=== PATIENT | male | born 1955 | race Caucasian/White ===

== ENCOUNTER 2016-06-16 07:31 | Day surgery (SDC) | payer BC ==
[2016-06-14 09:16] LABS: BASOPHILS 0.5 %; BASOPHILS ABSOLUTE 0.03 10/3/uL (0.0-0.16); EOSINOPHILS 1.5 %; EOSINOPHILS ABSOLUTE 0.09 10/3/uL (0.0-0.53); HEMATOCRIT 41.4 % (40.0-51.0); HEMOGLOBIN 14.2 g/dL (13.6-17.8); IMMATURE GRANULOCYTES 0.2 %; IMMATURE GRANULOCYTES ABSOLUTE 0.01 10/3/uL (0.0-0.11); LYMPHOCYTES 22.9 %; LYMPHOCYTES ABSOLUTE 1.38 10/3/uL (0.67-4.30); MEAN CORPUS HGB CONC 34.3 g/dL (32.0-36.0); MEAN CORPUSCULAR HEMOGLOB 30.1 pg (26.0-34.0); MEAN CORPUSCULAR VOLUME 87.9 fL (80-100); MEAN PLATELET VOLUME 10.5 fL (9.2-13.0); MONOCYTES ABSOLUTE 0.48 10/3/uL (0.21-1.20); NEUTROPHILS 66.9 %; NEUTROPHILS ABSOLUTE 4.03 10/3/uL (2.02-8.40); PLATELET COUNT 187 10/3/uL (150-400); RBC DISTRIBUTION WIDTH 12.7 % (12.0-16.0); RED CELL COUNT 4.71 10/6/uL (4.7-6.1)
[2016-06-14 09:17] LABS: MANUAL DIFF NO %
[2016-06-14 09:33] LABS: BUN (BLOOD UREA NITROGEN) 13 MG/DL (6-23); CALCIUM, SERUM 8.5 MG/DL (8.5-10.4); CHLORIDE, SERUM 108 MMOL/L (96-112); CO2 (CARBON DIOXIDE) 30 MMOL/L (24-34); CREATININE 0.91 MG/DL (0.70-1.30); GFR AFRICAN AMERICAN 106 ML/MIN (>=60); GFR NON AFRICAN AMERICAN 91 ML/MIN (>=60); GLUCOSE, SERUM 98 MG/DL (60-99); POTASSIUM, SERUM 4.3 MMOL/L (3.5-5.3); SODIUM, SERUM 145 MMOL/L (135-148)
[2016-06-14 09:38] LABS: PFA (COL/EPI) 148 SEC (72-180)
[2016-06-14 09:44] LABS: ASCORBIC ACID (UR NOT ORDER) NEG (NEG); BILIRUBIN, URINE NEGATIVE (NEG); KETONE, URINE NEGATIVE (NEG); LEUKOCYTE ESTERASE(NOT OR NEG (NEG); WBC (NOT ORDERED) (RFLEX) 1 (0-5)
--- NOTE | ~2016-06-16 | OP ---
Record Of [id number] [place]. [address] NAME: TIKI DE LOS SANTOS : 57 STATUS : REG [facility] PAT#: [id number] AGE: 61 ADM/REG DATE : 06/16/16 MR#: [id number] REPORT SERV DATE: 06/16/16 DICTATED BY: KAI SORENSEN DATE: 06/16/16 REPORT STATUS : Draft TRANSCRIBED BY: MODL DATE: 06/16/16 DATE OF PROCEDURE: 06/16/2016 PREOPERATIVE DIAGNOSIS: Elevated PSA of 11.2. POSTOPERATIVE DIAGNOSIS: Elevated PSA of 11.2. PROCEDURE: Transrectal ultrasound with saturation biopsy of the prostate gland. SURGEON: Kai Sorensen M.D. ANESTHESIA: MAC. SPECIMENS: 1. Left apex 3 cores. 2. Left mid 6 cores. 3. Left base 6 cores. 4. Right apex 3 cores. 5. Right mid 6 cores. 6. Right base 6 cores. COMPLICATIONS: None. DISPOSITION: To Phase 2 in good condition. ESTIMATED BLOOD LOSS: Less than 5 mL. PROSTATIC VOLUME: 83.28 mL. HISTORY: A 61-year-old gentleman, whose PSA took a jump to 11.2 in the past year. This is his third prostate biopsy, so he presents today for saturation biopsies in the operating room. PROCEDURE IN DETAIL: After consent was obtained, the patient was taken to the operating room and placed in the left lateral decubitus position in the stretcher. MAC anesthetic was induced. The above biopsies were then taken. After ultrasound volume was obtained by the Department of Radiology. Pressure was held on the biopsy site for 3 minutes by the clock using lidocaine with epinephrine soaked gauze. The patient tolerated it well. He was awakened and taken to Phase 2 in good condition. PLAN: Plan will be to see him back in two weeks for his pathology results. All of his postoperative prescriptions were given to him at his office visit. /MODL Record Of [address] [place]. [address] NAME: TIKI DE LOS SANTOS : 57 STATUS : REG [facility] PAT#: [id number] AGE: 61 ADM/REG DATE : 06/16/16 MR#: [id number] REPORT SERV DATE: 06/16/16 DICTATED BY: KAI SORENSEN DATE: 06/16/16 REPORT STATUS : Draft TRANSCRIBED BY: JACEK DATE: 06/16/16 Kai Sorensen M.D. / [id number] CC: Shereen Lima M.D.
[~2016-06-16 07:31] MED LIST: CENTRUM PO; CIP5 PO; FLOMAX4 PO; MEVACOR40 MG PO; OMNICEF PO; XARELTO20 MG PO; lovastatin PO
[2016-08-10] MEDS ORDERED: [UNRECOGNIZED DRUG - OTHER] PO (10:35)
[2016-08-10] MEDS ORDERED: METAMUCIL CAN7 OZ PO (10:36)
[2016-08-10] MEDS ORDERED: T PO (10:37)
== END 2016-06-16 15:47 | disposition home or self-care (01) ==
LOC: SDC 07:31
PROVIDERS: Urology
PROC: 0VB03ZX Excision of Prostate, Percutaneous Approach, Diagnostic (ICD-10-PCS; principal; 2016-06-16 08:45)
DX: C61 Malignant neoplasm of prostate (principal); Z79.899 Other long term (current) drug therapy; Z98.890 Other specified postprocedural states; Z98.52 Vasectomy status
CPT/HCPCS: 76872; 76942; 80048; 81001; 85025; 85576; 88305; 93005; J2250; J2405

== ENCOUNTER 2016-08-17 05:42 | Observation (INO) | payer BC ==
[2016-08-10 11:55] LABS: BASOPHILS 0.5 %; BASOPHILS ABSOLUTE 0.03 10/3/uL (0.0-0.16); EOSINOPHILS 0.9 %; EOSINOPHILS ABSOLUTE 0.06 10/3/uL (0.0-0.53); HEMATOCRIT 41.6 % (40.0-51.0); HEMOGLOBIN 14.5 g/dL (13.6-17.8); IMMATURE GRANULOCYTES 0.2 %; IMMATURE GRANULOCYTES ABSOLUTE 0.01 10/3/uL (0.0-0.11); LYMPHOCYTES 15.9 %; LYMPHOCYTES ABSOLUTE 1.04 10/3/uL (0.67-4.30); MEAN CORPUS HGB CONC 34.9 g/dL (32.0-36.0); MEAN CORPUSCULAR HEMOGLOB 30.4 pg (26.0-34.0); MEAN CORPUSCULAR VOLUME 87.2 fL (80-100); MEAN PLATELET VOLUME 10.4 fL (9.2-13.0); MONOCYTES ABSOLUTE 0.46 10/3/uL (0.21-1.20); NEUTROPHILS 75.5 %; NEUTROPHILS ABSOLUTE 4.93 10/3/uL (2.02-8.40); PLATELET COUNT 194 10/3/uL (150-400); RBC DISTRIBUTION WIDTH 12.9 % (12.0-16.0); RED CELL COUNT 4.77 10/6/uL (4.7-6.1); WHITE BLOOD CELLS 6.5 10/3/uL (4.5-10.5)
[2016-08-10 11:56] LABS: MANUAL DIFF NO %
[2016-08-10 12:03] LABS: INTERNATIONAL NORMAL RATI 1.1 UNITS (-); PARTIAL THROMBO TIME 30.7 SEC (22.5-37.2); PROTIME (NOT ORD) 13.9 SEC (12.0-14.5)
[2016-08-10 12:04] LABS: ASCORBIC ACID (UR NOT ORDER) NEG (NEG); BILIRUBIN, URINE NEGATIVE (NEG); KETONE, URINE NEGATIVE (NEG); LEUKOCYTE ESTERASE(NOT OR TRACE (NEG); WBC (NOT ORDERED) (RFLEX) 7 (0-5)
[2016-08-10 12:10] LABS: BUN (BLOOD UREA NITROGEN) 15 MG/DL (6-23); CALCIUM, SERUM 8.9 MG/DL (8.5-10.4); CHLORIDE, SERUM 108 MMOL/L (96-112); CO2 (CARBON DIOXIDE) 30 MMOL/L (24-34); CREATININE 0.87 MG/DL (0.70-1.30); GFR AFRICAN AMERICAN 109 ML/MIN (>=60); GFR NON AFRICAN AMERICAN 94 ML/MIN (>=60); GLUCOSE, SERUM 107 MG/DL (60-99); POTASSIUM, SERUM 4.2 MMOL/L (3.5-5.3); SODIUM, SERUM 143 MMOL/L (135-148)
--- NOTE | ~2016-08-17 | OP ---
Record Of Operation [facility] [address] [place]. [address] NAME: TIKI DE LOS SANTOS : 57 STATUS : ADM Genia PAT#: [id number] AGE: 61 ADM/REG DATE : 08/17/16 MR#: [id number] REPORT SERV DATE: 08/17/16 DICTATED BY: BROCK GUADALUPE DATE: 08/17/16 REPORT STATUS : Draft TRANSCRIBED BY: MODL DATE: 08/17/16 DATE OF PROCEDURE: 08/17/2016 PREOPERATIVE DIAGNOSIS: Adenocarcinoma of the prostate, clinical stage T2b, Cloverdale score 3+4=7, maximum PSA 11.2. POSTOPERATIVE DIAGNOSIS: Adenocarcinoma of the prostate, clinical stage T2b, Cloverdale score 3+4=7, maximum PSA 11.2. OTHER DIAGNOSIS: Umbilical hernia. PROCEDURES: 1. Laparoscopic robot-assisted radical prostatectomy. 2. Laparoscopic robot-assisted bilateral pelvic node sampling. 3. Umbilical hernia repair. POOL COORDINATOR: Irasema Barney. ANESTHESIA: General. ESTIMATED BLOOD LOSS: 150 mL. FLUID REPLACEMENT: 3 L of crystalloid. DRAINS: A 15 mm Fan drain in prevesical space and an 18-Bahamian Guadalupe catheter per urethra with 12 mL of sterile water inflating in catheter balloon. INDICATION: A 61-year-old male with adenocarcinoma of the prostate as described above. He also has an umbilical hernia. TECHNIQUE: The patient was identified, brought to the operating room, administered general anesthetic agent by the Anesthesia Service, and intubated. He was positioned into the dorsal lithotomy position and appropriately padded and secured to the table. The abdomen was previously clipped. The entire abdomen, penis, groin, scrotum, and perineum were prepped and draped in usual sterile fashion. A 16-Bahamian Guadalupe catheter was passed in the bladder and left for drainage. All laparoscopic port sites were first infiltrated with 0.5% Marcaine plain. A 3 cm skin incision was made around the umbilicus on the right side. It was carried down to the fascia and the hernia sac of the umbilical hernia was identified. The hernia sac was opened sharply. Part of the hernia sac was excised at this point. A balloon trocar was placed into the peritoneal space and a pneumoperitoneum was created by insufflating carbon dioxide. The abdominal pressure was raised to 15 mmHg and held there through the entire case until otherwise specified. All other laparoscopic ports were placed under direct laparoscopic vision. The patient was placed in steep Trendelenburg and three robot arm ports and two virtual assistant for advertisers ports were placed under laparoscopic vision. Once the ports were in position, the da Eyal robot was brought to the table and mated to the ports. Record Of Operation [facility] [address] [address] NAME: TIKI DE LOS SANTOS : 57 STATUS : ADM Genia PAT#: [id number] AGE: 61 ADM/REG DATE : 08/17/16 MR#: [id number] REPORT SERV DATE: 08/17/16 DICTATED BY: BROCK GUADALUPE DATE: 08/17/16 REPORT STATUS : Draft TRANSCRIBED BY: JACEK DATE: 08/17/16 The abdominal pressure was raised to 15 mmHg and held there through the entire case until otherwise specified. I then took down some adhesions between the sigmoid colon and left pelvic sidewall. I opened the cul-de-sac and exposed the seminal structures. The left and right vasa deferentia were dissected out, clipped proximally, and transected distally. The seminal vesicles were then dissected out. The Denonvilliers fascia was opened sharply and the rectum was swept off the undersurface of the prostate with sharp and blunt dissection. The rectum was adherent to the prostate especially at the right apex. It was very careful to take down the rectum and leave some of the tissue attached to the prostate as this may be part of his cancer. Once I had the rectum taken down off the undersurface of the prostate, I opened the peritoneum just lateral to the median umbilical ligaments on each side and I swept the bladder off the anterior abdominal wall, symphysis pubis. I divided the median umbilical ligaments and the urachus near the umbilicus. The fat overlying the prostate gland was taken off with sharp dissection. I pierced the endopelvic fascia sharply at the prostatovesical junction and opened the endopelvic fascia all way out through the puboprostatic ligaments bilaterally. Attachments of the striated sphincter were taken off the apex of the prostate sharply. The dorsal venous complex was isolated and secured with laparoscopic SANDRO stapling device. I oversewed part of it with 3-0 Monocryl. I began to dissect the neurovascular bundles off the apex of the prostate. On the right side, it was stuck, so I sacrificed a part of the neurovascular bundle on the right side. On the left side, it mobilized off more cleanly. I then switched to 30-degree down lens and developed a plane between the bladder neck of the prostate. I preserved the bladder neck and came across it sharply and then I came across the posterior bladder neck. The Guadalupe catheter was elevated. I carried the dissection down to expose the seminal structures. The lateral attachments of the bladder to the prostate were taken off sharply. The posterior pedicles were secured with locking clips and divided sharply. I carried the dissection out to the apex. The last attachments of striated sphincter were taken off the apex of the prostate. The urethra was divided sharply and the posterior striated sphincter was divided. The specimen was inspected, appeared intact, and placed in a specimen retrieval bag and held for later retrieval. I took some frozen sections from the posterior apex as well as the right neurovascular bundle. No prostatic tissue was noted. The abdominal pressure is now lowered down to 7 mmHg and held there for the next 10 minutes. The pelvis was irrigated copiously. Fastidious hemostasis was achieved. I performed posterior reconstruction in two layers using 3-0 V-Loc. I then did a modified van Velthoven vesicourethral anastomosis with 3-0 V-Loc. When the anastomosis was completed, I inserted a new 18-Bahamian Guadalupe catheter. I tested the anastomosis by filling the bladder 240 mL of saline. It held without extravasation. The bladder was then drained 12 mL of sterile water and inflated in catheter balloon. I then sampled the [id number] external iliac and obturator lymph nodes. The locking clips and metallic clips were used for lymphostasis and hemostasis. The nodes were placed into a specimen retrieval bag and held for later retrieval. Record Of Operation [facility] [address] [facility] [place]. [address] NAME: TIKI DE LOS SANTOS : 57 STATUS : ADM Genia PAT#: [id number] AGE: 61 ADM/REG DATE : 08/17/16 MR#: [id number] REPORT SERV DATE: 08/17/16 DICTATED BY: BROCK GUADALUPE DATE: 08/17/16 REPORT STATUS : Draft TRANSCRIBED BY: MODL DATE: 08/17/16 I removed the instrument out of the third robot arm port and placed a 15 mm Fan drain through that port and left in the prevesical space. The port was removed and the drain was sutured to the skin with 2-0 Prolene. I undocked the da Eyal robot. I transferred the strings of the specimen bag out through the umbilical port. The virtual assistant for advertisers 12 mm port was removed and the fascia there was closed with a Janusz-Marco A endoscopic closure system. The other ports were removed under low pressure. No port site bleeding was noted. I had to extend my transverse and I did make an incision into the fascia transversely at the umbilicus. I completely exposed the fascia circumferentially. Approximately 1.5 to 2 cm was incised on each side of the umbilicus. I then delivered the specimens out through the wound. I closed the fascia with [id number] 0 Vicryl sutures. I then tacked the umbilicus down onto the fascia with 3-0 Vicryl. The subcutaneous tissue of all ports was irrigated copiously. I then closed the skin of all ports with 4-0 Monocryl. Dressings were applied. The catheter was secured. The patient was awakened and taken to the recovery unit in stable condition. PF/MODL Brock Guadalupe M.D. / [id number] CC: Brock Guadalupe M.D.
--- NOTE | ~2016-08-17 | PREOPHP ---
PreOp History and Physical [address] [place]. [address] NAME: TIKI DE LOS SANTOS : 57 STATUS : PRE [facility] PAT#: [id number] AGE: 61 ADM/REG DATE : MR#: [id number] REPORT SERV DATE: 08/17/16 DICTATED BY: BROCK GUADALUPE DATE: 08/16/16 REPORT STATUS : Draft TRANSCRIBED BY: MODL DATE: 08/16/16 CHIEF COMPLAINT: Adenocarcinoma of the prostate, clinical stage T2b, Janice score 3+4=7, maximum PSA of 11.2. HISTORY OF PRESENT ILLNESS: Mr. De Los Santos is a 61-year-old white male who was recently diagnosed with adenocarcinoma of the prostate. Elevated PSA of 11.2 led to the biopsies. Biopsy revealed two positive cores from the right side. The worst Janice score 4+3. He had a palpable nodule on that side. The patient has moderate obstructive voiding symptoms and mild erectile dysfunction. Different treatment options regarding management of prostate cancer were proposed to the patient. He has decided to proceed with laparoscopic robot- assisted radical prostatectomy and bilateral pelvic node sampling. He also has an umbilical hernia that will be repaired or closed. PAST MEDICAL HISTORY: Deafness, hypertension, dyslipidemia, and psoriasis. PAST SURGICAL HISTORY: Hemorrhoidectomy, vasectomy, eye surgery, cochlear implant, and rotator cuff surgery. MEDICATIONS: Presently terazosin, tamsulosin, lovastatin, fish oil, and aspirin, which has been on hold. ALLERGIES: NO KNOWN DRUG ALLERGIES. SOCIAL HISTORY: Denies any drug, alcohol, or tobacco abuse. REVIEW OF SYSTEMS: Denies weight loss. He wears glasses. He has a hearing loss and occasional dizzy spells. PHYSICAL EXAMINATION: GENERAL: Shows a well-developed and well-nourished white male, in no acute distress. He has an obvious hearing loss. EYES: Sclerae anicteric. NECK: Supple. LUNGS: Clear. HEART: Regular rate and rhythm. ABDOMEN: Soft and nontender. Umbilical hernia is present. GENITOURINARY: Penis normal. Testes are descended. No inguinal hernia. Prostate is moderately enlarged with a nodule on the right side. EXTREMITIES: Lower extremities show no deformities. IMPRESSION: 1. Adenocarcinoma of the prostate, clinical stage T2b, worst Bellwood score 4+3=6, maximum PSA of 11.2. 2. Umbilical hernia. PLAN: Laparoscopic robot-assisted radical prostatectomy and bilateral pelvic node sampling and closure of umbilical hernia. Potential complications of bleeding, infection, urinary PreOp History and Physical [address] [address] NAME: TIKI DE LOS SANTOS : 57 STATUS : PRE [facility] PAT#: [id number] AGE: 61 ADM/REG DATE : MR#: [id number] REPORT SERV DATE: 08/17/16 DICTATED BY: BROCK GUADALUPE DATE: 08/16/16 REPORT STATUS : Draft TRANSCRIBED BY: MODL DATE: 08/16/16 incontinence, bladder neck obstruction, loss of ejaculate, erectile dysfunction, and injury to adjacent structures such as bladder, ureters, rectum, colon, intestine, nerves, as well as bowel obstruction complications have all been explained to the patient. He consents to proceed. PF/MODL Brock Guadalupe M.D. / [id number] CC: Shereen Richardson M.D.
[~2016-08-17 05:42] MED LIST changes: +METAMUCIL CAN7 OZ PO; +T PO; +[UNRECOGNIZED DRUG - OTHER] PO
[2016-08-18 06:34] LABS: BASOPHILS 0.2 %; BASOPHILS ABSOLUTE 0.02 10/3/uL (0.0-0.16); EOSINOPHILS 0.1 %; EOSINOPHILS ABSOLUTE 0.01 10/3/uL (0.0-0.53); HEMATOCRIT 38.5 % (40.0-51.0); HEMOGLOBIN 13.3 g/dL (13.6-17.8); IMMATURE GRANULOCYTES 0.2 %; IMMATURE GRANULOCYTES ABSOLUTE 0.02 10/3/uL (0.0-0.11); LYMPHOCYTES 10.3 %; LYMPHOCYTES ABSOLUTE 0.93 10/3/uL (0.67-4.30); MEAN CORPUS HGB CONC 34.5 g/dL (32.0-36.0); MEAN CORPUSCULAR HEMOGLOB 30.8 pg (26.0-34.0); MEAN CORPUSCULAR VOLUME 89.1 fL (80-100); MEAN PLATELET VOLUME 10.6 fL (9.2-13.0); MONOCYTES 8.3 %; MONOCYTES ABSOLUTE 0.75 10/3/uL (0.21-1.20); NEUTROPHILS 80.9 %; NEUTROPHILS ABSOLUTE 7.28 10/3/uL (2.02-8.40); PLATELET COUNT 169 10/3/uL (150-400); RBC DISTRIBUTION WIDTH 12.7 % (12.0-16.0); RED CELL COUNT 4.32 10/6/uL (4.7-6.1)
[2016-08-18 06:35] LABS: MANUAL DIFF NO %
[2016-08-18 06:43] LABS: BUN (BLOOD UREA NITROGEN) 8 MG/DL (6-23); CALCIUM, SERUM 8.2 MG/DL (8.5-10.4); CHLORIDE, SERUM 111 MMOL/L (96-112); CO2 (CARBON DIOXIDE) 29 MMOL/L (24-34); CREATININE 0.79 MG/DL (0.70-1.30); GFR AFRICAN AMERICAN 113 ML/MIN (>=60); GFR NON AFRICAN AMERICAN 98 ML/MIN (>=60); GLUCOSE, SERUM 105 MG/DL (60-99); POTASSIUM, SERUM 4.1 MMOL/L (3.5-5.3); SODIUM, SERUM 145 MMOL/L (135-148)
[2016-08-18] MEDS ORDERED: PCET PO (09:45)
== END 2016-08-18 11:02 | disposition home or self-care (01) ==
LOC: SDC 05:42 → SDC/OF 12:35 → 4SO 14:42
PROVIDERS: Urology
PROC: 07BC4ZX Excision of Pelvis Lymphatic, Percutaneous Endoscopic Approach, Diagnostic (ICD-10-PCS; 2016-08-17)
PROC: 0WQF0ZZ Repair Abdominal Wall, Open Approach (ICD-10-PCS; principal; 2016-08-17 06:30)
PROC: 0VT04ZZ Resection of Prostate, Percutaneous Endoscopic Approach (ICD-10-PCS; 2016-08-17 06:30)
DX: K42.9 Umbilical hernia without obstruction or gangrene (principal); E78.5 Hyperlipidemia, unspecified; R00.1 Bradycardia, unspecified; Z79.899 Other long term (current) drug therapy; H91.90 Unspecified hearing loss, unspecified ear; Z85.828 Personal history of other malignant neoplasm of skin; Z96.21 Cochlear implant status
CPT/HCPCS: 80048; 81001; 83735; 85025; 85610; 85730; 87641; 88302; 88305; 88307; 88309; 88331; 93005; A9270-GY; G0378; J0690; J2250; J2270; J2370; J2405; J2550; J2710; J3010